=== PATIENT | male | born 1945 | race Caucasian/White ===

== ENCOUNTER 2020-09-29 11:17 | Emergency (ER) | payer OTHER ==
[~2020-09-29] VITALS: Ht 172.7 cm; Wt 77.1 kg
[2020-09-29 11:17] VITALS: BP_SYST 126
[~2020-09-29 11:17] MED LIST: ALBU0.63; FLUT1DIS; TIOT18CA3
== END 2020-09-29 11:55 | disposition left against medical advice (07) ==
LOC: SED 11:17
DX: Z02.89 Encounter for other administrative examinations (principal); J44.9 Chronic obstructive pulmonary disease, unspecified; Z79.899 Other long term (current) drug therapy
CPT/HCPCS: 99281